=== PATIENT | female | born 1965 | race Caucasian/White ===

== ENCOUNTER 2016-06-04 06:43 | Emergency (ER) | payer OTHER ==
[~2016-06-04] VITALS: Ht 160 cm; Wt 47.4 kg
[~2016-06-04 06:43] MED LIST: BACTRIM,SEPT1 TABLET PO; FLEXERIL10 MG PO; KEFLEX500 MG PO; LYRICA150 MG PO; MOBIC15 MG PO; MORPHINE SULFAT15 M1 PO; MOTRIN800 MG PO; OXYCONTIN30 MG PO; PEN-VEE K,VEET500 MG PO; PEPCID20 MG PO; PERCOCET 10/1 TABLET PO; PERCOCET 5/31 TABLET PO; PREDNISONE50 MG PO; VALIUM5 MG PO
[2016-06-04 06:51] VITALS: BP 162/57
[2016-06-04] MEDS ORDERED: MOTRIN600 MG PO (07:59)
[2016-06-04] MEDS ORDERED: FLEXERIL10 MG PO (07:59)
== END 2016-06-04 08:05 | disposition home or self-care (01) ==
LOC: EME 06:43
DX: M54.31 Sciatica, right side (principal); S76.011A Strain of muscle, fascia and tendon of right hip, initial encounter; Y99.0 Civilian activity done for income or pay; X50.9XXA Other and unspecified overexertion or strenuous movements or postures, initial encounter; F17.200 Nicotine dependence, unspecified, uncomplicated
CPT/HCPCS: 73502; 99281; 99284; J1885

== ENCOUNTER 2016-07-02 14:50 | Emergency (ER) | payer OTHER ==
[~2016-07-02] VITALS: Ht 160 cm; Wt 46.8 kg
[~2016-07-02 14:50] MED LIST changes: +MOTRIN600 MG PO
[2016-07-02 16:02] LABS: MCH 32.6 PG (29.0-34.0); MCHC 32.6 G/DL (30.0-36.0); MEAN PLAT.VOLUME 8.8 uM^3 (9.5-12.4); PLATELET COUNT 379 K/uL (156-360); RBC DIS.WIDTH-CV 13.4 % (11.8-14.6); RBC DIS.WIDTH-SD 49.7 % (39-53); WHITE BLOOD COUNT 14.2 K/uL (4.1-10.2)
[2016-07-02] MEDS ORDERED: OXYCODONE-APAP1 EACH PO (16:06)
[2016-07-02] MEDS ORDERED: MORPHINE SULFAT15 M1 PO (16:06)
[2016-07-02] MEDS ORDERED: LYRICA75 MG PO (16:07)
[2016-07-02 16:11] LABS: CHLORIDE 109 mEq/L (99-109); POTASSIUM 3.8 mEq/L (3.7-5.4); SODIUM 142 mEq/L (136-147)
[2016-07-02 16:12] LABS: GLUCOSE 120 mg/dL (70-99)
[2016-07-02 16:14] LABS: ANION GAP 10 MEQ/L (2-14)
[2016-07-02 16:16] LABS: GFR ESTIMATE (CALCULATED) > 59 mL/min/
[2016-07-02 16:17] LABS: UREA NITROGEN (BUN) 15 mg/dL (9-23)
[2016-07-02] MEDS ORDERED: CLEOCIN300 MG PO (18:40)
[2016-07-02] MEDS ORDERED: NAPROSYN500 MG PO (18:40)
[2016-07-02 19:02] VITALS: BP 106/53
== END 2016-07-02 19:04 | disposition home or self-care (01) ==
LOC: EME 14:50
PROVIDERS: Emergency Medicine
DX: L72.8 Other follicular cysts of the skin and subcutaneous tissue (principal); F17.200 Nicotine dependence, unspecified, uncomplicated
CPT/HCPCS: 74177; 80048; 85027; 99281; 99284; J2270; J2405

== ENCOUNTER 2016-09-04 07:17 | Emergency (ER) | payer OTHER ==
[~2016-09-04] VITALS: Ht 160 cm; Wt 46.0 kg
[~2016-09-04 07:17] MED LIST changes: +CLEOCIN300 MG PO; +LYRICA75 MG PO; +NAPROSYN500 MG PO; +OXYCODONE-APAP1 EACH PO
[2016-09-04 07:57] LABS: ADD MIUA? YES; BILIRUBIN NEGATIVE; BLOOD NEGATIVE; COLOR YELLOW ((YELLOW)); GLUCOSE (STRIP) NEGATIVE; KETONES NEGATIVE; LEUKOCYTES SMALL; NITRITE POSITIVE; PROTEIN (STRIP) 30; SPECIFIC GRAVITY 1.017 (1.000-1.030)
[2016-09-04 08:10] LABS: HEMATOCRIT 36.9 % (36.0-46.0); MCH 31.9 PG (29.0-34.0); MCHC 33.1 G/DL (30.0-36.0); MCV 96.3 FL (83-99); MEAN PLAT.VOLUME 9.6 uM^3 (9.5-12.4); PLATELET COUNT 312 K/uL (156-360); RBC DIS.WIDTH-CV 14.2 % (11.8-14.6); RBC DIS.WIDTH-SD 49.8 % (39-53); RED BLOOD COUNT 3.83 M/uL (3.80-5.20)
[2016-09-04 08:11] LABS: BACTERIA 3+ /HPF; EPITHELIAL CELLS 2+ /HPF; MUCUS 2+ /LPF; RED BLOOD CELLS 0-5 /HPF (0-5); UCUL ADDED? YES
[2016-09-04 08:26] LABS: CHLORIDE 110 mEq/L (99-109); POTASSIUM 3.5 mEq/L (3.7-5.4); SODIUM 144 mEq/L (136-147)
[2016-09-04 08:28] LABS: GLUCOSE 129 mg/dL (70-99)
[2016-09-04 08:29] LABS: ANION GAP 11 MEQ/L (2-14)
[2016-09-04 08:30] LABS: TOTAL BILIRUBIN 0.6 mg/dL (0.0-1.0)
[2016-09-04 08:31] LABS: ALKALINE PHOSPHATASE 74 IU/L (3-129)
[2016-09-04 08:32] LABS: GFR ESTIMATE (CALCULATED) > 59 mL/min/
[2016-09-04 08:33] LABS: UREA NITROGEN (BUN) 9 mg/dL (9-23)
[2016-09-04 08:35] LABS: LIPASE 11 U/L (1.0-51.0)
[2016-09-04] MEDS ORDERED: BACTRIM,SEPT1 TABLET PO (10:53)
[2016-09-04] MEDS ORDERED: ZOFRAN4 MG PO (10:53)
[2016-09-04 11:22] VITALS: BP 155/76
== END 2016-09-04 11:23 | disposition home or self-care (01) ==
LOC: EME 07:17
PROVIDERS: Nurse Practitioner Family
DX: N39.0 Urinary tract infection, site not specified (principal); R11.2 Nausea with vomiting, unspecified; R10.10 Upper abdominal pain, unspecified; M79.7 Fibromyalgia; F17.200 Nicotine dependence, unspecified, uncomplicated
CPT/HCPCS: 74177; 80053; 81003; 83690; 85027; 87077; 87086; 87186; 93005; 99281; 99285; J1630; J1885; J2405; J2765; J7030

== ENCOUNTER → 2017-05-27 | Outpatient (CLI) | payer OTHER ==
[~2017-05-27] MED LIST changes: +ZOFRAN4 MG PO
== END | disposition home or self-care (01) ==
LOC: CDC 11:59
DX: Z01.810 Encounter for preprocedural cardiovascular examination (principal); M51.36 Other intervertebral disc degeneration, lumbar region; R94.31 Abnormal electrocardiogram [ECG] [EKG]
CPT/HCPCS: 93000

== ENCOUNTER 2017-09-23 08:17 | Emergency (ER) | payer OTHER ==
[~2017-09-23] VITALS: Ht 162.6 cm; Wt 44.1 kg
[2017-09-23] MEDS ORDERED: ZITHROMAX Z-PA250 MG PO (10:32)
[2017-09-23] MEDS ORDERED: ROBITUSSIN AC,T10 ML PO (10:34)
[2017-09-23 10:54] VITALS: BP 133/72
== END 2017-09-23 10:55 | disposition home or self-care (01) ==
LOC: EME 08:17
DX: J20.9 Acute bronchitis, unspecified (principal); Z71.6 Tobacco abuse counseling; F17.200 Nicotine dependence, unspecified, uncomplicated; M81.0 Age-related osteoporosis without current pathological fracture; M79.7 Fibromyalgia; M48.00 Spinal stenosis, site unspecified; Z79.891 Long term (current) use of opiate analgesic; Z88.5 Allergy status to narcotic agent
CPT/HCPCS: 71046; 99281; 99284